=== PATIENT | male | born 1990 | race Caucasian/White ===

== ENCOUNTER 2022-08-01 09:39 | Inpatient (IN) | payer MEDICAID ==
[~2022-08-01] VITALS: Ht 190.5 cm; Wt 135.6 kg
--- NOTE | 2022-08-01 09:50 | NUR ---
C/O RIGHT SIDED FLANK PAIN WITH DYSURIA THIS MORNING. PT DENIES HEMATURIA
[2022-08-01] MEDS ORDERED: MORPHINE SULFATE INJ 4 MG/ML DISP.SYRIN ONE ×2 (09:54→12:22)
[2022-08-01] MEDS ORDERED: ONDANSETRON HCL/PF 4 MG/2 ML VIAL ONE (09:54)
[2022-08-01] MEDS ORDERED: KETOROLAC TROMETHAMINE INJ 30 MG/ML VIAL ONE (09:55)
--- NOTE | 2022-08-01 09:55 | NUR ---
AT BEDSIDE FOR EVAL
--- NOTE | 2022-08-01 09:56 | NUR ---
ivp line started blood drawn, lab called for picker and packer.
--- NOTE | 2022-08-01 09:58 | NUR ---
URINE SAMPLE COLLECTED AND SENT TO LAB
[2022-08-01] MEDS ORDERED: IV NS 0.9% 500 ML BAG IV ONE (10:00)
[2022-08-01] MEDS ORDERED: ONDANSETRON HCL/PF 4 MG/2 ML VIAL IVP ONE (10:00)
[2022-08-01] MEDS ORDERED: MORPHINE SULFATE INJ 2 MG/ML DISP.SYRIN IV ONE ×2 (10:00→12:00)
[2022-08-01] MEDS ORDERED: KETOROLAC TROMETHAMINE INJ 30 MG/ML VIAL IV ONE (10:00)
[2022-08-01 10:09] LABS: BILIRUBIN,URINE 1+ (NEGATIVE); COLOR,URINE DARK YELLOW (YELLOW); LEUKOCYTE ESTERASE ,URINE NEGATIVE (NEGATIVE); NITRITE, URINE NEGATIVE (NEGATIVE); PH,URINE 6.5 (5.0-8.0); PROTEIN,URINE 2+ mg/dl (NEGATIVE); UGLUCOSE NEGATIVE (NEGATIVE)
--- NOTE | 2022-08-01 10:09 | NUR ---
PT KEPT COMFORTABLE IN BED. PILLOW AND BLANKET PROVIDED. PT STATES, "I FEEL A BETTER". 07/01 PAIN.
[2022-08-01 10:21] LABS: CALCIUM, SERUM 9.5 mg/dL (8.5-10.1); CREATININE 1.1 mg/dL (0.6-1.3); POTASSIUM 3.7 mmol/L (3.5-5.1)
[2022-08-01 10:22] LABS: RBC,URINE 51-80 /HPF (0-2)
[2022-08-01 10:23] LABS: BACTERIA,URINE Few /HPF (None Seen); SQUAMOUS EPITHELIAL CELL,UR Few /HPF (None Seen); WBC,URINE 0-3 /HPF (0-3)
[2022-08-01 10:27] LABS: ALBUMIN 4.2 g/dL (3.4-5.0); BILIRUBIN,DIRECT 0.2 mg/dL (0.0-0.2); BILIRUBIN,TOTAL 1.3 mg/dL (0.2-1.0); TOTAL PROTEIN, SERUM 8.1 g/dL (6.4-8.2)
[2022-08-01 10:36] LABS: BASOPHILS % (AUTO) 0.4 % (0.0-2.0); EOSINOPHILS % (AUTO) 1.3 % (0.0-6.0); HEMATOCRIT 46 % (39-51); HEMOGLOBIN 15.6 g/dL (13.5-17.5); LYMPHOCYTES # (AUTO) 1.4 K/uL (0.8-4.8); LYMPHOCYTES % (AUTO) 20.7 % (20.0-44.0); MEAN CORPUSCULAR HGB CONC 34 g/dl (31.0-36.0); MEAN CORPUSCULAR VOLUME 81 fL (80-96); MONOCYTES # (AUTO) 0.6 K/uL (0.1-1.30); MONOCYTES % (AUTO) 8.5 % (2.0-12.0); NEUTROPHILS # (AUTO) 4.5 K/uL (1.8-8.9); NEUTROPHILS % (AUTO) 69.1 % (43.0-81.0); PLATELET COUNT (AUTO) 226 K/uL (150-450); RED BLOOD CELL COUNT(AUTO) 5.68 MIL/uL (4.5-6.0); WHITE BLOOD COUNT (AUTO) 6.6 K/uL (4.3-11.0)
--- NOTE | 2022-08-01 10:43 | NUR ---
BACK FROM CT
--- NOTE | 2022-08-01 12:14 | NUR ---
PATIENT WOULD LIKE TO HOLD THE PAIN MEDS FOR NOW.
--- NOTE | 2022-08-01 15:10 | NUR ---
BED ASSIGNED 321.1, ADMITTING AWARE
--- NOTE | 2022-08-01 15:16 | NUR ---
REPORT GIVEN TO JOSE WHITTINGTON
[2022-08-01] MEDS ORDERED: MAGNESIUM HYDROXIDE 30 ML UDC PO PRN ×2 (15:30→16:00)
[2022-08-01] MEDS ORDERED: ONDANSETRON HCL/PF 4 MG/2 ML VIAL IVP PRN ×2 (15:30→16:00)
[2022-08-01] MEDS ORDERED: MORPHINE SULFATE INJ 2 MG/ML DISP.SYRIN IV PRN (15:30)
[2022-08-01] MEDS ORDERED: ACETAMINOPHEN 325 MG TABLET PO PRN ×2 (15:30→16:00)
[2022-08-01] MEDS ORDERED: Z GUARD REMEDY 4 OZ OINT TP PRN ×2 (15:30→16:00)
[2022-08-01] MEDS ORDERED: IV NS 0.9% 1,000 ML IV PRN (15:30)
[2022-08-01] MEDS ORDERED: MAG HYDROX/AL HYDROX/SIMETH 30 ML UDC PO PRN ×2 (15:30→16:00)
--- NOTE | 2022-08-01 15:52 | NUR ---
MOVED TO INPATIENT ROOM SAFELY PER PROTOCOL
[2022-08-01 17:30] VITALS: BP 135/95
--- NOTE | 2022-08-01 17:30 | NUR ---
ms rn received on bed, awake,alert oriented x4, from er, came in w/ abd pain, possible appendicitis, breathing even and unlabored,no sob noted, on room air, ambulatory patient, will monitor patient's condition.
--- NOTE | 2022-08-01 17:49 | NUR ---
ms rn got diet order from dr. anders,pt is aware.
[2022-08-01] MEDS ORDERED: PIPERACILLIN /TAZOBACTAM 3.375 G in IV D5W 50 ML IV SCH (18:00)
[2022-08-01] MEDS: PIPERACILLIN /TAZOBACTAM 3.375 G in IV D5W 50 ML IV SCH (18:51)
[2022-08-01] MEDS: IV NS 0.9% 1,000 ML IV PRN (18:51)
[2022-08-01] MEDS: MORPHINE SULFATE INJ 2 MG/ML DISP.SYRIN IV PRN (19:11)
--- NOTE | 2022-08-01 19:33 | NUR ---
MS RN OPENING NOTES: RECEIVED PATIENT AWAKE IN BED, BED IN LOW POSITION, CALL LIGHTS WITHIN REACH, NO COMPLAIN OF PAIN AND DISCOMFORT AT THIS TIME, ON ROOM AIR SATURATING WELL, PATIENT IS A/OX 4 ABLE TO MAKE NEEDS KNOWN, IV LINE AT RAC#20 WITH ONGOING 0.9NSS@75ML/HR INFUSING WELL, PATIENT KEPT CLEAN AND DRY ALL NEEDS MET WILL CONTINUE TO MONITOR.
[2022-08-01 20:00] VITALS: BP 129/77
--- NOTE | 2022-08-01 22:18 | NUR ---
RN NOTES; PATIENT VERBALIZED THAT HE IS USING CPAP AT HOME AND HE HAS HIS MACHINE WITH HIM, NOTIFY FREELANCE DIRECTOR TITA AND ORDER CPA AND NOTIFY RT, ME WITH RT KURT EXPLAIN TO THE PATIENT THAT WE CANNOT US HIS MACHINE CAUSE IT HAS TO BE CHECKED BY BIOMED, ANY MACHINE FROM HOME NEEDS TO BE CHECK BY BIOMED PRIOR TO USING AND INSTEAD, WE NEED TO USE THE HOSPITAL MACHINE, RT EXPLAINED EVERYTHING TO HIM ABOUT THE MACHINE AND SET UP BUT PATIENT NOW REFUSED TO USE IT, WILL CONTINUE TO MONITOR.
[2022-08-02] MEDS: PIPERACILLIN /TAZOBACTAM 3.375 G in IV D5W 50 ML IV SCH ×4 (00:31→18:17)
[2022-08-02] MEDS: MORPHINE SULFATE INJ 2 MG/ML DISP.SYRIN IV PRN ×2 (02:59→09:23)
--- NOTE | 2022-08-02 06:43 | NUR ---
MS RN CLOSING NOTES: PATIENT SLEEP IN BED COMFORTABLY, AROUSABLE TO VERBAL STIMULI, BED IN LOW POSITION,CALL LIGHTS WITHIN REACH, NO COMPLAIN OF PAIN AND DISCOMFORT AT THIS TIME, ON ROOM AIR SATURATING WELL, PATIENT IS A/OX4 AMBULATORY, ON URINAL- 350CC URINE OUTPUT. ABLE TO MAKE NEEDS KNOWN, IV LINE @ RAC#20 WITH ONGOING 0.9NSS@75ML/HR INFUSING WELL, REFUSED THE HOSPITAL CPAP, PATIENT KEPT CLEAN AND DRY ALL NEEDS MET ENDORSE TO INCOMING SHIFT.
[2022-08-02 07:00] VITALS: BP 126/78
--- NOTE | 2022-08-02 07:35 | NUR ---
MS RN OPENING NOTES: RECEIVED PATIENT IN BED, AWAKE, A/O X 4, ABLE TO MAKE NEEDS KNOWN, DENIES PAIN AT THIS TIME. ON ROOM AIR, WITH NO S/S OF SOB, BREATHING EVEN AND UNLABORED. IV ACCESS AT RAC #20G WITH NS AT 75 ML/HOUR, INFUSING WELL. ALL SAFETY MEASURES ARE IN PLACE, HOB ELEVATED, CALL LIGHT AND TABLE WITHIN EASY REACH; WILL CONTINUE TO MONITOR THE PATIENT THE ENTIRE SHIFT.
[2022-08-02 08:00] VITALS: BP 126/78
--- NOTE | 2022-08-02 09:23 | NUR ---
RN NOTE PATIENT VERBALIZED FLANK PAIN WITH SCALE OF 8/10. PAIN MEDICATION ADMINISTERED IS ORDERED AND REASSESS PAIN AFTER 30 MINUTES. WILL CONTINUE TO MONITOR PATIENT
[2022-08-02 11:28] LABS: BASOPHILS % (AUTO) 0.3 % (0.0-2.0); EOSINOPHILS % (AUTO) 0.3 % (0.0-6.0); HEMATOCRIT 43 % (39-51); LYMPHOCYTES # (AUTO) 1.1 K/uL (0.8-4.8); LYMPHOCYTES % (AUTO) 12.6 % (20.0-44.0); MEAN CORPUSCULAR HGB CONC 33 g/dl (31.0-36.0); MEAN CORPUSCULAR VOLUME 82 fL (80-96); MONOCYTES % (AUTO) 11.4 % (2.0-12.0); NEUTROPHILS # (AUTO) 6.8 K/uL (1.8-8.9); NEUTROPHILS % (AUTO) 75.4 % (43.0-81.0); PLATELET COUNT (AUTO) 188 K/uL (150-450); RED BLOOD CELL COUNT(AUTO) 5.22 MIL/uL (4.5-6.0)
[2022-08-02 11:39] LABS: CALCIUM, SERUM 8.7 mg/dL (8.5-10.1); POTASSIUM 3.7 mmol/L (3.5-5.1)
[2022-08-02] MEDS: IV NS 0.9% 1,000 ML IV PRN (12:37)
[2022-08-02 16:00] VITALS: BP 119/69
--- NOTE | 2022-08-02 18:53 | NUR ---
MS RN CLOSING NOTES: PATIENT IN BED, AWAKE, A/O X 4, ABLE TO MAKE NEEDS KNOWN, DENIES PAIN AT THIS TIME. ON ROOM AIR, WITH NO S/S OF SOB, BREATHING EVEN AND UNLABORED. IV ACCESS AT RAC #20G WITH NS AT 75 ML/HOUR, INFUSING WELL. ALL DUE MEDICATIONS ADMINISTERED. PATIENT WAS ABLE TO TOLERATE REGULAR DIET, NO COMPLAINTS OF BLOATEDNESS OR PAIN. ALL NEEDS ATTENDED AND ANTICIPATED. ALL SAFETY MEASURES ARE IN PLACE, HOB ELEVATED, CALL LIGHT AND TABLE WITHIN EASY REACH; WILL ENDORSE TO GOLF COURSE STARTER NURSE
--- NOTE | 2022-08-02 19:28 | NUR ---
MS RN OPENING NOTES: RECEIVED PATIENT AWAKE IN BED,ACCOMPANIED BY FAMILY, BED IN LOW POSITION,CALL LIGHTS WITHIN,REACH, NO COMPLAIN OF PAIN AND DISCOMFORT AT THIS TIME, ON ROOM AIR SATURATING WELL,PATIENT ASHLYN/O X4 ABLE TO MAKE NEEDS KNOWN,AMBULATORY, WITH IV LINE AT RAC#20 WITH ONGOING [id number]/HR INFUSING WELL, PATIENT KEPT CLEAN AND DRY ALL NEEDS MET WILL CONTINUE TO MONITOR.
[2022-08-02 20:00] VITALS: BP 132/78
[2022-08-03] MEDS: PIPERACILLIN /TAZOBACTAM 3.375 G in IV D5W 50 ML IV SCH ×2 (00:09→06:15)
[2022-08-03] MEDS ORDERED: MORPHINE SULFATE INJ 4 MG/ML DISP.SYRIN IV PRN (02:30)
[2022-08-03 06:23] LABS: BASOPHILS % (AUTO) 0.4 % (0.0-2.0); EOSINOPHILS % (AUTO) 1.6 % (0.0-6.0); HEMATOCRIT 42 % (39-51); HEMOGLOBIN 13.9 g/dL (13.5-17.5); LYMPHOCYTES # (AUTO) 1.7 K/uL (0.8-4.8); LYMPHOCYTES % (AUTO) 20.4 % (20.0-44.0); MEAN CORPUSCULAR HGB CONC 33 g/dl (31.0-36.0); MEAN CORPUSCULAR VOLUME 82 fL (80-96); MONOCYTES # (AUTO) 0.7 K/uL (0.1-1.30); MONOCYTES % (AUTO) 8.5 % (2.0-12.0); NEUTROPHILS # (AUTO) 5.7 K/uL (1.8-8.9); NEUTROPHILS % (AUTO) 69.1 % (43.0-81.0); PLATELET COUNT (AUTO) 192 K/uL (150-450); WHITE BLOOD COUNT (AUTO) 8.3 K/uL (4.3-11.0)
--- NOTE | 2022-08-03 06:23 | NUR ---
RN CLOSING NOTES: PATIENT SLEEP IN BED COMFORTABLY, AROUSABLE TO VERBAL STIMULI, BED IN LOW POSITION, CALL LIGHTS WITHIN REACH, NO COMPLAIN OF PAIN AND DISCOMFORT AT THIS TIME, ON ROOM AIR SATURATING WELL, PATIENT IS A/OX4 ABLE TO MAKE NEEDS KNOWN, AMBULATORY WITH SUPERVISION, IV LINE AT RAC#20 WITH ONGOING 0.9NSS@75ML/HR, PATIENT KEPT CLEAN AND DRY ALL NEEDS MET ENDORSE TO INCOMING SHIFT.
[2022-08-03] MEDS: IV NS 0.9% 1,000 ML IV PRN (06:42)
[2022-08-03 07:51] LABS: CALCIUM, SERUM 8.5 mg/dL (8.5-10.1); CREATININE 1.1 mg/dL (0.6-1.3); POTASSIUM 3.7 mmol/L (3.5-5.1)
--- NOTE | 2022-08-03 08:08 | NUR ---
[facility]: RECEIVED PT ASLEEP IN BED EASILY AWAKEN, AOX4, ABLE TO MAKE NEEDS KNOWN. ON ROOM AIR BREATHING WITHOUT DIFFICULTY. DENIED PAIN NOR DISCOMFORT, NO N/V DURING THIS TIME. IV ACCESS ON RIGHT AC G#20 INFUSING NS @75 ML/HR, INTACT, PATENT AND FLUSHING WELL. REMINDED TO WATCH OUT FOR PASSING STONES IN THE URINE. ORIENTED TO ROOM AND STAFF. SAFETY MEASURES IN PLACE: BED IN LOWEST AND LOCKED POSITION, SIDE RAILS UP X2, CALL LIGHT AND TRAY TABLE WITHIN EASY REACH. WILL CONTINUE TO MONITOR. Addendum: 08/03/22 at 0906 by CARMENCITA TURNER RN CORRECTION: G#18 RIGHT ANTECUBITAL
[2022-08-03] MEDS ORDERED: LEVO500T90 PO (09:07)
--- NOTE | 2022-08-03 10:57 | NUR ---
MS LACQUER MIXER NOTE PT DISCHARGED TO HOME IN STABLE CONDITION, PT IS AOX4, ABLE TO VERBALIZE NEEDS, ABLE TO FOLLOW COMMANDS. ON ROOM AIR BREATHING WITHOUT DIFFICULTY, NO SIGNS AND SYMPTOMS OF RESPIRATORY DISTRESS. VS TAKEN AND RECORDED, STABLE. PT SKIN IS INTACT. DENIED PAIN DURING THIS TIME. ALL BELONGINGS ACCOUNTED FOR, FORM SIGNED. DISCHARGE INSTRUCTIONS GIVEN TO PATIENT. REMOVED RAC G#18 IV ACCESS, NO ACTIVE BLEEDING NOTED. PRESSURE GAUZE APPLIED. PT LEFT THE UNIT AT 1045 AMBULATORY, ACCOMPANIED BY HERSON WALTON MD AND CHARGE NURSE AWARE OF THE DISCHARGE.
== END 2022-08-03 10:45 | disposition home or self-care (01) | DRG 254 ==
LOC: ER 09:45 → MED 16:59
PROVIDERS: ADMIT Internal Medicine; ATTEND Internal Medicine
DX: K37 Unspecified appendicitis (principal); N20.1 Calculus of ureter; E66.9 Obesity, unspecified; R31.29 Other microscopic hematuria; Z68.37 Body mass index [BMI] 37.0-37.9, adult; K38.1 Appendicular concretions; Z87.442 Personal history of urinary calculi
CPT/HCPCS: 36415; 80048-TC; 80076-TC; 81001; 83690-TC; 85025-TC; 87081-TC; A4223; G0378; J1885; J2270; J2405; J2543; J7030; J7040; J7060